=== PATIENT | male | born 1990 | race Caucasian/White ===

== ENCOUNTER 2017-08-27 04:32 | Emergency (ER) | payer OTHER ==
[2017-08-27] MEDS ORDERED: ONDANSETRON 4 MG/2 ML VIAL IVP ONE (04:37)
[2017-08-27] MEDS ORDERED: NS 1,000 ML IV ONE ×2 (04:37)
--- NOTE | 2017-08-27 04:37 | EDPHY ---
H & P Time Seen by Provider: 08/27/17 04:37 HPI/ROS: HPI CHIEF COMPLAINT: Nausea/vomiting post tonsillectomy HISTORY OF PRESENT ILLNESS: Patient very pleasant 26-year-old male, he had a tonsillectomy on Monday or 4 days ago, he woke up this evening approximately an hour ago or around 330 in the morning with nausea vomiting. States his tonsils started bleeding he swallowed some blood and got nauseous and then vomited. He now complains of 7/10 pain. Complains of pain when he swallows. Maintaining his airway appropriately upon arrival. Vital signs are stable. Past Medical History: Significant medical history Past Surgical History: Tonsillectomy by ENT Dr. Moreno on Monday. Social History: Denies drugs alcohol tobacco. Family History: Noncontributory ROS REVIEW OF SYSTEMS: A comprehensive 10 point review of systems is otherwise negative aside from elements mentioned in the history of present illness. Exam Constitutional appears well nontoxic no acute distress triage nursing summary reviewed, vital signs reviewed, awake/alert. Eyes normal conjunctivae and sclera, EOMI, PERRLA. HENT posterior pharynx tonsillar bed has cauterization interiano bilaterally, on the right tonsillar bed there is some venous blood present, do not appreciate active bleed at this time,, moist mucus membranes, no epistaxis, neck supple/ no meningismus, no raccoon eyes. Respiratory clear to auscultation bilaterally, normal breath sounds, no respiratory distress, no wheezing. Cardiovascular rate normal, regular rhythm, no murmur, no edema, distal pulses normal. Gastrointestinal soft, non-tender, no rebound, no guarding, normal bowel sounds, no distension, no pulsatile mass. Genitourinary no CVA tenderness. Musculoskeletal no midline vertebral tenderness, full range of motion, no calf swelling, no tenderness of extremities, no meningismus, good pulses, neurovascularly intact. Skin pink, warm, & dry, no rash, skin atraumatic. Neurologic awake, alert and oriented x 3, AAOx3, moves all 4 extremities equally, motor intact, sensory intact, CN II-XII intact, normal cerebellar, normal vision, normal speech. Psychiatric normal mood/affect. Heme/Lymph/Immune no lymphadenopathy. Differential Diagnosis: Includes but is not limited to in a particular order, dehydration, electrolyte disturbance, acute nausea vomiting from blood ingestion , post tonsillar bleed Medical Decision Making: Plan for this patient IV established with IV fluid bolus Zofran for nausea Dilaudid for pain control check basic blood work, and I will contact ENT. Re-evaluation: 451: Spoke with ENT Adolfo DAVALOS, Recommends ICE Gargles. Re-eval. 604: Re-evaluation at this time patient resting comfortably. There has been no further bleeding. He did gargle ice cold water which improved. His pain is well controlled with IV Dilaudid here in emergency room he received IV Zofran for nausea IV fluids. He is feeling well. No further bleeding no further nausea vomiting. I will allow him to go home. I do recommend he return emergency room if he has recurrence of bleeding severe pain vomiting. [place] diet. No spicy or hot or hard foods. Soft diet. Follow up with ENT. Return if worse. He understands. Source: Patient - Medical/Surgical History Hx Asthma: No Hx Chronic Respiratory Disease: No Hx Diabetes: No Hx Cardiac Disease: No Hx Renal Disease: No Hx Cirrhosis: No Hx Alcoholism: No Hx HIV/AIDS: No Hx Splenectomy or Spleen Trauma: No Other PMH: psh- L ACL - Social History Smoking Status: Never smoked Constitutional: Initial Vital Signs Temperature (C) 37 C 08/27/17 04:37 Heart Rate 67 08/27/17 04:37 Respiratory Rate 16 08/27/17 04:37 Blood Pressure 141/88 H 08/27/17 04:37 O2 Sat (%) 97 08/27/17 04:37 O2 Delivery Mode Nasal Cannula O2 (L/minute) 2 Allergies/Adverse Reactions: No Known Allergies Allergy (Unverified 07/02/11 22:27) Home Medications: Medication Instructions Recorded Ondansetron Odt [Zofran Odt] 4 mg PO Q4 #8 tab 11/26/15 Dexamethasone 08/27/17 Percocet 5/325 (*) 08/27/17 Medical Decision Making - Data Points Laboratory Results: Laboratory Results 08/27/17 04:50 08/27/17 04:50 08/27/17 08/27/17 04:50 04:50 WBC 16.07 10^3/uL H 10^3/uL (3.80-9.50) RBC 5.01 10^6/uL 10^6/uL (4.40-6.38) Hgb 14.4 g/dL g/dL (13.7-17.5) Hct 41.8 % % (40.0-51.0) MCV 83.4 fL fL (81.5-99.8) MCH 28.7 pg pg (27.9-34.1) MCHC 34.4 g/dL g/dL (32.4-36.7) RDW 12.3 % % (11.5-15.2) Plt Count 345 10^3/uL 10^3/uL (150-400) MPV 9.4 fL fL (8.7-11.7) Neut % (Auto) 71.3 % % (39.3-74.2) Lymph % (Auto) 23.8 % % (15.0-45.0) [place] % (Auto) 4.2 % L % (4.5-13.0) Eos % (Auto) 0.1 % L % (0.6-7.6) Baso % (Auto) 0.2 % L % (0.3-1.7) Nucleat RBC Rel Count 0.0 % % (0.0-0.2) Absolute Neuts (auto) 11.43 10^3/uL H 10^3/uL (1.70-6.50) Absolute Lymphs (auto) 3.83 10^3/uL H 10^3/uL (1.00-3.00) Absolute Monos (auto) 0.68 10^3/uL 10^3/uL (0.30-0.80) Absolute Eos (auto) 0.02 10^3/uL L 10^3/uL (0.03-0.40) Absolute Basos (auto) 0.04 10^3/uL 10^3/uL (0.02-0.10) Absolute Nucleated RBC 0.00 10^3/uL 10^3/uL (0-0.01) Immature Gran % 0.4 % % (0.0-1.1) Immature Gran # 0.07 10^3/uL 10^3/uL (0.00-0.10) Sodium 144 mEq/L mEq/L (135-145) Potassium 4.0 mEq/L mEq/L (3.5-5.2) Chloride 105 mEq/L mEq/L (97-110) Carbon Dioxide 24 mEq/l mEq/l (22-31) Anion Gap 15 mEq/L mEq/L (8-16) BUN 17 mg/dL mg/dL (7-23) Creatinine 1.0 mg/dL mg/dL (0.7-1.3) Estimated GFR > 60 Glucose 96 mg/dL mg/dL (70-100) Calcium 10.0 mg/dL mg/dL (8.5-10.4) Medications Given: Discontinued Medications Hydromorphone HCl (Dilaudid) 0.5 mg IVP EDNOW ONE Stop: 08/27/17 04:45 Last Admin: 08/27/17 04:47 Dose: 0.5 mg Hydromorphone HCl (Dilaudid) 0.5 mg IVP EDNOW ONE Stop: 08/27/17 04:45 Last Admin: 08/27/17 04:48 Dose: Not Given Sodium Chloride (Ns) 1,000 mls @ 0 mls/hr IV EDNOW ONE; Wide Open PRN Reason: Protocol Stop: 08/27/17 04:38 Last Admin: 08/27/17 04:53 Dose: 1,000 mls Sodium Chloride (Ns) 1,000 mls @ 0 mls/hr IV EDNOW ONE; Wide Open PRN Reason: Protocol Stop: 08/27/17 04:38 Last Admin: 08/27/17 04:53 Dose: 1,000 mls Ondansetron HCl (Zofran) 4 mg IVP EDNOW ONE Stop: 08/27/17 04:38 Last Admin: 08/27/17 04:54 Dose: 4 mg Departure - Departure Disposition: Home, Routine, Self-Care Clinical Impression: Post-tonsillectomy hemorrhage Condition: Good Instructions: Pharyngitis (ED) Additional Instructions: 1. Return emergency room if he develops further bleeding. 2. Soft bland diet over the next 3 days. 3. Follow up with ENT. 4. Return if worse. Referrals: NONE *PRIMARY CARE P,. [Primary Care Provider] - As per Instructions Nadir Moreno MD [Medical Doctor] - As per Instructions
[2017-08-27 04:40] VITALS: RESP 16; TEMP 98.6
[2017-08-27] MEDS ORDERED: HYDROmorphONE/DILAUDID 2 MG/ML INJ IVP ONE ×2 (04:44)
[2017-08-27 04:58] LABS: PLATELET COUNT 345 10^3/uL (150-400)
[2017-08-27 05:54] VITALS: BP 133/71; PULSE 50; O2SAT 96
== END 2017-08-27 06:20 | disposition home or self-care (01) ==
DX: J95.830 Postprocedural hemorrhage of a respiratory system organ or structure following a respiratory system procedure (principal); E86.9 Volume depletion, unspecified
CPT/HCPCS: 96374; J1170; J2405